=== PATIENT | female | born 1955 | race Caucasian/White ===

== ENCOUNTER 2024-03-19 09:00 | Day surgery (SDC) | payer MEDICARE, OTHER ==
[2024-03-19 10:03] VITALS: BP 121/73; PULSE 56; RESP 16; TEMP 98.1
--- NOTE | 2024-03-19 10:11 | US ---
ULTRASOUND GUIDED FNA SOFT TISSUE NECK BIOPSY: CLINICAL HISTORY: Left neck palpable abnormality. FINDINGS: Preliminary imaging demonstrated a ossified density at the area of palpable abnormality. There is no soft tissue abnormality for ultrasound-guided biopsy. IMPRESSION: 1. There is a bony density corresponding to the palpable abnormality with no sizable soft tissue comp onent for percutaneous biopsy. 2. Finding is of indeterminate etiology I ultrasound. No additional imaging available for comparison. Recommend consideration for CT or MRI of the neck\cervical spine.
== END 2024-03-19 10:00 | disposition home or self-care (01) ==
LOC: RADPROMAIN 09:00
PROVIDERS: ATTEND Otolaryngology
DX: Z53.8 Procedure and treatment not carried out for other reasons (principal); R22.1 Localized swelling, mass and lump, neck
CPT/HCPCS: 76536

== ENCOUNTER → 2024-04-08 | Outpatient (CLI) | payer MEDICARE, OTHER ==
--- NOTE | 2024-04-11 12:55 | MR ---
EXAMINATION TYPE: MR neck wo/w con DATE OF EXAM: 04/08/2024 10:00 PM CLINICAL INDICATION: Female, 68 years old with history of R22.1 SWELL, MASS, LUMP OF NECK; PHH, lump back left of neck, marker placed. COMPARISON: Canceled 03/19/2024 [facility]. TECHNIQUE: Multi planar, multi sequence imaging was performed of the neck soft tissues. MR contrast: IV Contrast: 6 cc Gadavist FINDINGS: No lymph node or mass identified in the area of palpable marker on the left posterior neck . No abnormal postcontrast enhancement. There is mild bony edema within the transverse process of C2 and C3 deep to this region. The glottis appears unremarkable. Several nonenlarged anterior chain lym ph nodes are identified. There is no evidence to suggest a soft tissue mass. The cervical vertebral bodies have preserved heights and alignment. Multilevel disc desiccation and anterior osteophytosis are present. The cervical spinal cord demonstrates a normal appearance. IMPRESSION: 1. There is mild edema within the transverse process of C2-C3. This is thought to be on a degenerati ve basis. No definitive evidence for soft tissue mass in a lymph node identified. 2. Multilevel degenerative disc disease with associated osteoarthritic changes. [facility], , 04/11/2024 12:53 PM
== END | disposition home or self-care (01) ==
LOC: RADMRIMAIN 21:15
PROVIDERS: ATTEND Otolaryngology
DX: R22.1 Localized swelling, mass and lump, neck
CPT/HCPCS: 70543